=== PATIENT | male | born 1980 | race African-American/Black ===

== ENCOUNTER 2018-08-04 07:57 | Emergency (ER) | payer MEDICAID ==
[~2018-08-04] VITALS: Ht 180.3 cm; Wt 100.0 kg
[2018-08-04 07:58] VITALS: BP 121/74
[2018-08-04] MEDS ORDERED: METF-960 PO (08:05)
[2018-08-04 08:08] LABS: GLUCOSE,POINT OF CARE 183 MG/DL (70-110)
[2018-08-04] MEDS ORDERED: PROPARACAINE HCL 0.5% 15 ML OPHTHALMIC SOLUTION OD ONE (09:00)
[2018-08-04] MEDS ORDERED: FLUORESCEIN SODIUM 1 MG STRIP ONE (09:03)
[2018-08-04] MEDS ORDERED: ERYTHROMYCIN 0.5% 3.5 GM TUBE OPHTHALMIC OINTMENT OD ONE ×2 (09:15→09:30)
[2018-08-04] MEDS ORDERED: IBUPROFEN 800 MG TABLET PO ONE (09:15)
== END 2018-08-04 09:48 | disposition home or self-care (01) ==
LOC: EMS 07:57
DX: H00.013 Hordeolum externum right eye, unspecified eyelid (principal); I10 Essential (primary) hypertension; Z87.891 Personal history of nicotine dependence; Z79.84 Long term (current) use of oral hypoglycemic drugs

== ENCOUNTER 2019-06-17 09:58 | Emergency (ER) | payer MEDICAID ==
[~2019-06-17] VITALS: Ht 180.3 cm; Wt 90.5 kg
[~2019-06-17 09:58] MED LIST: METF-960 PO
[2019-06-17] MEDS ORDERED: METF-960 PO (10:01)
[2019-06-17 10:16] LABS: GLUCOSE,POINT OF CARE 246 MG/DL (70-110)
[2019-06-17] MEDS ORDERED: ONDANSETRON HCL 4 MG/2 ML VIAL IVP ONE (11:15)
[2019-06-17] MEDS ORDERED: KETOROLAC TROMETHAMINE 30 MG/ML VIAL IVP ONE (11:15)
[2019-06-17] MEDS ORDERED: SODIUM CHLORIDE 0.9% 1,000 ML IV ONE (11:15)
[2019-06-17 11:25] LABS: EOSINOPHILS % (AUTO) 1.1 % (1.0-6.0); HEMATOCRIT 49.5 % (41-53); HEMOGLOBIN 16.6 g/dL (13.5-17.5); LYMPHOCYTES # (AUTO) 1.3 K/uL (1.0-4.8); LYMPHOCYTES % (AUTO) 17.8 % (22.0-44.0); MEAN CORPUSCULAR HEMOGLOBIN 31.2 pg (26.0-34.0); MEAN CORPUSCULAR HGB CONC 33.6 G/dL (31.0-37.0); MEAN CORPUSCULAR VOLUME 93 fL (80-100); MONOCYTES # (AUTO) 0.5 K/uL (0.1-1.0); MONOCYTES % (AUTO) 6.2 % (2.0-9.0); NEUTROPHILS # (AUTO) 5.5 K/uL (1.8-7.7); NEUTROPHILS % (AUTO) 73.9 % (40.0-70.0); PLATELET COUNT (AUTO) 267 K/uL (150-450); RED BLOOD CELL COUNT(AUTO) 5.33 MIL/uL (4.50-5.90); RED CELL DISTRIBUTION WIDTH 13.1 % (11.5-14.5)
[2019-06-17 11:45] LABS: ANION GAP 10 mmol/L (8-16); CALCIUM, TOTAL 9.4 mg/dL (8.8-10.5); CARBON DIOXIDE 25 mmol/L (22-29); CHLORIDE 100 mmol/L (98-107); GLOMERULAR FILTR. RATE CALC > 60 mL/min (>60); GLUCOSE,RANDOM 248 mg/dL (70-110); POTASSIUM 3.7 mmol/L (3.5-5.1); SODIUM SERUM 135 mmol/L (136-145); UREA NITROGEN, BLOOD 7 mg/dL (7-18)
[2019-06-17] MEDS ORDERED: HYDROmorphone 2 MG/ML SYRINGE IVP ONE (11:45)
[2019-06-17 11:49] LABS: ALANINE AMINOTRANSFERASE 44 U/L (12-78); ALBUMIN 3.8 g/dL (3.4-5.0); ALKALINE PHOSPHATASE 111 U/L (46-116); ASPARTATE AMINOTRANSFERASE 30 U/L (15-37); LIPASE 293 U/L (73-393); TOTAL PROTEIN, SERUM 7.4 g/dL (6.4-8.2)
[2019-06-17 12:34] LABS: LACTIC ACID 1.4 mmol/L (0.4-2.0)
[2019-06-17 12:43] VITALS: BP 133/80
== END 2019-06-17 13:24 | disposition home or self-care (01) ==
LOC: EMS 09:59
DX: E11.65 Type 2 diabetes mellitus with hyperglycemia (principal); R10.11 Right upper quadrant pain; R11.10 Vomiting, unspecified; I10 Essential (primary) hypertension; F17.210 Nicotine dependence, cigarettes, uncomplicated; Z87.442 Personal history of urinary calculi; Z79.84 Long term (current) use of oral hypoglycemic drugs
CPT/HCPCS: 36415; 74176; 80053; 82962; 83605; 83690; 84484; 85025; 93005; 96361; 96374; 96375; 99285; G0480; J1170; J1885; J2405; J7030

== ENCOUNTER 2019-06-20 08:12 | Emergency (ER) | payer MEDICAID ==
[~2019-06-20] VITALS: Ht 180.3 cm; Wt 104.5 kg
[2019-06-20 08:35] LABS: GLUCOSE,POINT OF CARE 189 MG/DL (70-110)
[2019-06-20 09:41] LABS: BASOPHILS % (AUTO) 0.6 % (0.0-2.0); EOSINOPHILS % (AUTO) 0.6 % (1.0-6.0); HEMATOCRIT 44.7 % (41-53); HEMOGLOBIN 15.4 g/dL (13.5-17.5); LYMPHOCYTES % (AUTO) 12.5 % (22.0-44.0); MEAN CORPUSCULAR HEMOGLOBIN 31.4 pg (26.0-34.0); MEAN CORPUSCULAR HGB CONC 34.4 G/dL (31.0-37.0); MEAN CORPUSCULAR VOLUME 91 fL (80-100); MONOCYTES # (AUTO) 0.7 K/uL (0.1-1.0); MONOCYTES % (AUTO) 8.2 % (2.0-9.0); NEUTROPHILS # (AUTO) 6.4 K/uL (1.8-7.7); NEUTROPHILS % (AUTO) 78.1 % (40.0-70.0); PLATELET COUNT (AUTO) 250 K/uL (150-450); RED CELL DISTRIBUTION WIDTH 12.9 % (11.5-14.5)
[2019-06-20] MEDS ORDERED: KETOROLAC TROMETHAMINE 30 MG/ML VIAL IVP ONE ×2 (10:15→10:30)
[2019-06-20 10:40] LABS: ANION GAP 11 mmol/L (8-16); CALCIUM, TOTAL 8.3 mg/dL (8.8-10.5); CARBON DIOXIDE 28 mmol/L (22-29); CHLORIDE 103 mmol/L (98-107); GLOMERULAR FILTR. RATE CALC > 60 mL/min (>60); GLUCOSE,RANDOM 185 mg/dL (70-110); POTASSIUM 3.6 mmol/L (3.5-5.1); SODIUM SERUM 142 mmol/L (136-145); UREA NITROGEN, BLOOD 7 mg/dL (7-18)
[2019-06-20 10:46] LABS: ALANINE AMINOTRANSFERASE 28 U/L (12-78); ALBUMIN 3.7 g/dL (3.4-5.0); ALKALINE PHOSPHATASE 89 U/L (46-116); ASPARTATE AMINOTRANSFERASE 24 U/L (15-37); BILIRUBIN,TOTAL 1.2 mg/dL (0.1-1.0); TOTAL PROTEIN, SERUM 6.8 g/dL (6.4-8.2)
[2019-06-20 12:37] LABS: GLUCOSE, URINE (UA) NEGATIVE (NEGATIVE); KETONES,URINE >=80 mg/dL (NEGATIVE); LEUKOCYTE ESTERASE ,URINE NEGATIVE (NEGATIVE); NITRATE,URINE NEGATIVE (NEGATIVE); OCCULT BLOOD,URINE NEGATIVE (NEGATIVE); PROTEIN,URINE TRACE (NEGATIVE); UROBILINOGEN,URINE 0.2 mg/dL (<=1.0)
[2019-06-20 12:44] LABS: APPEARANCE,URINE HAZY (CLEAR); BILIRUBIN,URINE PRELIM. POSITIVE (NEGATIVE)
[2019-06-20 12:48] LABS: BACTERIA,URINE None Seen /HPF (None Seen); RBC,URINE 0-2 /HPF (0-2); WBC,URINE 0-2 /HPF (0-5)
[2019-06-20 13:31] VITALS: BP 119/71
== END 2019-06-20 13:33 | disposition home or self-care (01) ==
LOC: EMS 08:14
DX: F12.188 Cannabis abuse with other cannabis-induced disorder (principal); R10.33 Periumbilical pain; R11.2 Nausea with vomiting, unspecified; I10 Essential (primary) hypertension; F17.210 Nicotine dependence, cigarettes, uncomplicated; Z79.84 Long term (current) use of oral hypoglycemic drugs
CPT/HCPCS: 36415; 74018; 76770; 80053; 81001; 82962; 85025; 87491; 87591; 96374; 99284; J1885

== ENCOUNTER 2021-11-20 14:32 | Emergency (ER) | payer MEDICAID, OTHER ==
[~2021-11-20] VITALS: Ht 180.3 cm; Wt 86.3 kg
[~2021-11-20 14:32] MED LIST changes: +METF-1211 PO; -METF-960 PO
[2021-11-20] MEDS ORDERED: CAPSAICIN 0.025% 60 GM CREAM TP ONE (15:30)
[2021-11-20] MEDS ORDERED: ONDANSETRON HCL 4 MG/2 ML VIAL IVP ONE (15:30)
[2021-11-20] MEDS ORDERED: SODIUM CHLORIDE 0.9% 1,000 ML IV ONE (15:30)
[2021-11-20 15:47] LABS: BASOPHILS % (AUTO) 0.7 % (0.0-2.0); HEMATOCRIT 46.3 % (41-53); HEMOGLOBIN 15.7 g/dL (13.5-17.5); LYMPHOCYTES # (AUTO) 1.6 K/uL (1.0-4.8); LYMPHOCYTES % (AUTO) 22.7 % (22.0-44.0); MEAN CORPUSCULAR HEMOGLOBIN 30.9 pg (26.0-34.0); MEAN CORPUSCULAR VOLUME 91 fL (80-100); MONOCYTES # (AUTO) 0.6 K/uL (0.1-1.0); MONOCYTES % (AUTO) 8.3 % (2.0-9.0); NEUTROPHILS # (AUTO) 4.8 K/uL (1.8-7.7); NEUTROPHILS % (AUTO) 67.3 % (40.0-70.0); PLATELET COUNT (AUTO) 270 K/uL (150-450); RED CELL DISTRIBUTION WIDTH 13.4 % (11.5-14.5)
[2021-11-20 15:55] LABS: ANION GAP 12 mmol/L (8-16); CARBON DIOXIDE 29 mmol/L (22-29); CHLORIDE 99 mmol/L (98-107); CREATININE 0.61 mg/dL (0.60-1.30); GLOMERULAR FILTR. RATE CALC > 60 mL/min (>60); GLUCOSE,RANDOM 217 mg/dL (70-110); POTASSIUM 3.8 mmol/L (3.5-5.1); SODIUM SERUM 140 mmol/L (136-145); UREA NITROGEN, BLOOD 7 mg/dL (7-18)
[2021-11-20 16:01] LABS: ALANINE AMINOTRANSFERASE 29 U/L (12-78); ALBUMIN 3.9 g/dL (3.4-5.0); ALKALINE PHOSPHATASE 116 U/L (46-116); ASPARTATE AMINOTRANSFERASE 18 U/L (15-37); LIPASE 296 U/L (73-393); TOTAL PROTEIN, SERUM 7.7 g/dL (6.4-8.2)
[2021-11-20 17:14] LABS: APPEARANCE,URINE CLEAR (CLEAR); BILIRUBIN,URINE NEGATIVE (NEGATIVE); GLUCOSE, URINE (UA) 300-500 mg/dL (NEGATIVE); KETONES,URINE 80-100 mg/dL (NEGATIVE); LEUKOCYTE ESTERASE ,URINE NEGATIVE Leu/uL (NEGATIVE); NITRATE,URINE NEGATIVE (NEGATIVE); OCCULT BLOOD,URINE NEGATIVE (NEGATIVE); PROTEIN,URINE TRACE (NEGATIVE); SPECIFIC GRAVITIY, URINE 1.038 (1.003-1.030)
[2021-11-20 17:17] LABS: AMPHET/METH SCREEN,URINE NEGATIVE (NEGATIVE); BARBITURATE SCREEN, URINE NEGATIVE (NEGATIVE); BENZODIAZEPINES SCREEN,URINE NEGATIVE (NEGATIVE); CANNABINOID SCREEN,URINE POSITIVE (NEGATIVE); COCAINE SCREEN,URINE NEGATIVE (NEGATIVE); METHADONE SCREEN, URINE NEGATIVE (NEGATIVE); OPIATE SCREEN,URINE POSITIVE (NEGATIVE)
[2021-11-20 17:22] LABS: PHENCYCLIDINE SCREEN,URINE NEGATIVE (NEGATIVE)
[2021-11-20 17:52] LABS: BACTERIA,URINE None Seen /HPF (None Seen); RBC,URINE None Seen /HPF (0-2); WBC,URINE 0-2 /HPF (0-5)
[2021-11-20 17:53] LABS: SQUAMOUS EPITHELIAL CELL,UR Few /LPF (None Seen)
[2021-11-20 17:57] VITALS: BP 127/84
== END 2021-11-20 18:28 | disposition home or self-care (01) ==
LOC: EMS 14:34
DX: G89.29 Other chronic pain (principal); R10.84 Generalized abdominal pain; F12.988 Cannabis use, unspecified with other cannabis-induced disorder; R11.10 Vomiting, unspecified; I10 Essential (primary) hypertension; E11.9 Type 2 diabetes mellitus without complications; Z87.891 Personal history of nicotine dependence; Z79.84 Long term (current) use of oral hypoglycemic drugs
CPT/HCPCS: 36415; 80053; 80307; 81001; 83690; 85025; 96361; 96374; 99283; J2405; J7030

== ENCOUNTER 2022-11-12 09:30 | Emergency (ER) | payer OTHER ==
[~2022-11-12] VITALS: Ht 175.3 cm; Wt 75.0 kg
[2022-11-12] MEDS ORDERED: SODIUM CHLORIDE 0.9% 1,000 ML IV ONE (10:00)
[2022-11-12] MEDS ORDERED: ONDANSETRON HCL 4 MG/2 ML VIAL IVP ONE (10:00)
[2022-11-12 10:05] LABS: COVID AG,FIA SOURCE NASAL SWAB
[2022-11-12 10:06] LABS: BASOPHILS % (AUTO) 0.4 % (0.0-2.0); EOSINOPHILS % (AUTO) 0.7 % (1.0-6.0); HEMOGLOBIN 17.1 g/dL (13.5-17.5); LYMPHOCYTES # (AUTO) 1.2 K/uL (1.0-4.8); LYMPHOCYTES % (AUTO) 14.1 % (22.0-44.0); MEAN CORPUSCULAR HEMOGLOBIN 31.4 pg (26.0-34.0); MEAN CORPUSCULAR HGB CONC 33.6 G/dL (31.0-37.0); MEAN CORPUSCULAR VOLUME 93 fL (80-100); MONOCYTES # (AUTO) 0.5 K/uL (0.1-1.0); MONOCYTES % (AUTO) 6.2 % (2.0-9.0); NEUTROPHILS # (AUTO) 6.6 K/uL (1.8-7.7); NEUTROPHILS % (AUTO) 78.6 % (40.0-70.0); PLATELET COUNT (AUTO) 306 K/uL (150-450); RED BLOOD CELL COUNT(AUTO) 5.46 MIL/uL (4.50-5.90); RED CELL DISTRIBUTION WIDTH 13.1 % (11.5-14.5)
[2022-11-12 10:15] LABS: ANION GAP 8 mmol/L (8-16); CALCIUM, TOTAL 9.1 mg/dL (8.8-10.5); CARBON DIOXIDE 28 mmol/L (22-29); CHLORIDE 98 mmol/L (98-107); GLOMERULAR FILTR. RATE CALC > 60 mL/min (>60); GLUCOSE,RANDOM 335 mg/dL (70-110); POTASSIUM 4.2 mmol/L (3.5-5.1); SODIUM SERUM 134 mmol/L (136-145); UREA NITROGEN, BLOOD 8 mg/dL (7-18)
[2022-11-12 10:21] LABS: ALANINE AMINOTRANSFERASE 32 U/L (12-78); ALBUMIN 4.4 g/dL (3.4-5.0); ALKALINE PHOSPHATASE 140 U/L (46-116); ASPARTATE AMINOTRANSFERASE 23 U/L (15-37); LIPASE 235 U/L (73-393); TOTAL PROTEIN, SERUM 7.7 g/dL (6.4-8.2)
[2022-11-12] MEDS ORDERED: PB/HYOSCY/ATR/SCOP/LIDO/MAALOX 55 ML BOTTLE PO ONE (10:45)
[2022-11-12 10:49] LABS: INFLUENZA TYPE A NEGATIVE FOR TYPE A (NEGATIVE); INFLUENZA TYPE B NEGATIVE FOR TYPE B (NEGATIVE)
[2022-11-12 11:10] LABS: APPEARANCE,URINE CLEAR (CLEAR); BILIRUBIN,URINE NEGATIVE (NEGATIVE); GLUCOSE, URINE (UA) >=1000 mg/dL (NEGATIVE); KETONES,URINE 80-100 mg/dL (NEGATIVE); LEUKOCYTE ESTERASE ,URINE NEGATIVE (NEGATIVE); NITRATE,URINE NEGATIVE (NEGATIVE); OCCULT BLOOD,URINE NEGATIVE (NEGATIVE); PH,URINE 5.5 (5.0-8.0); PROTEIN,URINE NEGATIVE (NEGATIVE); SPECIFIC GRAVITIY, URINE 1.035 (1.003-1.030); UROBILINOGEN,URINE <=1.0 mg/dL (<=1.0)
[2022-11-12 11:35] LABS: BACTERIA,URINE Rare /HPF (None Seen); RBC,URINE 0-2 /HPF (0-2); SQUAMOUS EPITHELIAL CELL,UR Rare /LPF (None Seen); WBC,URINE 0-2 /HPF (0-5)
[2022-11-12 12:31] LABS: GLUCOSE,POINT OF CARE 286 MG/DL (70-110)
[2022-11-12] MEDS ORDERED: CAPSAICIN 0.025% 60 GM CREAM TP ONE (12:45)
[2022-11-12 13:36] VITALS: BP 137/82
[2022-11-12] MEDS ORDERED: ONDA-104 PO (13:37)
== END 2022-11-12 14:04 | disposition home or self-care (01) ==
LOC: EMS 09:39
DX: R10.11 Right upper quadrant pain (principal); R11.2 Nausea with vomiting, unspecified; F41.9 Anxiety disorder, unspecified; F10.20 Alcohol dependence, uncomplicated; E11.9 Type 2 diabetes mellitus without complications; I10 Essential (primary) hypertension; Z87.891 Personal history of nicotine dependence; Z98.890 Other specified postprocedural states; Z20.822 Contact with and (suspected) exposure to COVID-19
CPT/HCPCS: 99285; 74176; 96374; 96361; 87426; 80053; 81001; 82962; 83690; 85025; 87804; 36415; J2405; J7030

== ENCOUNTER 2025-06-09 14:47 | Emergency (ER) | payer OTHER ==
[~2025-06-09] VITALS: Ht 180.3 cm; Wt 82.3 kg
[~2025-06-09 14:47] MED LIST changes: +INSLAN SQ; -METF-1211 PO; +PANT-31 PO
[2025-06-09 14:53] VITALS: BP 114/79; PULSE 90; RESP 16; TEMP 97.9; O2SAT 98
[2025-06-09] MEDS: MAG HYDROX/ALUMINUM HYD/SIMETH 30 ML SUSPENSION UDCUP PO ONE (15:21)
[2025-06-09] MEDS: FAMOTIDINE 20 MG/2 ML VIAL IVP ONE (15:21)
[2025-06-09] MEDS ORDERED: ACETAMINOPHEN 500 MG TABLET PO ONE (15:30)
[2025-06-09 16:05] LABS: PLATELET COUNT (AUTO) 302 K/uL (150-450); RED BLOOD CELL COUNT(AUTO) 4.97 MIL/uL (4.50-5.90); RED CELL DISTRIBUTION WIDTH 13.0 % (11.5-14.5); WHITE BLOOD COUNT (AUTO) 7.9 K/uL (4.5-11.0)
[2025-06-09 16:13] LABS: CALCIUM, TOTAL 8.4 mg/dL (8.8-10.5); CREATININE 0.49 mg/dL (0.60-1.30); GLOMERULAR FILTR. RATE CALC > 60 mL/min (>60); GLUCOSE,RANDOM 274 mg/dL (70-110); SODIUM SERUM 134 mmol/L (136-145); UREA NITROGEN, BLOOD 7 mg/dL (7-18)
[2025-06-09 16:20] LABS: ASPARTATE AMINOTRANSFERASE 19.0 U/L (15-37); TOTAL PROTEIN, SERUM 6.7 g/dL (6.4-8.2)
== END 2025-06-09 16:46 | disposition home or self-care (01) ==
LOC: EMS 14:47
DX: R10.9 Unspecified abdominal pain (principal); G89.29 Other chronic pain; E11.9 Type 2 diabetes mellitus without complications; F10.20 Alcohol dependence, uncomplicated; I10 Essential (primary) hypertension; Z87.19 Personal history of other diseases of the digestive system; Z87.442 Personal history of urinary calculi; Z98.890 Other specified postprocedural states; Z90.49 Acquired absence of other specified parts of digestive tract; Z79.4 Long term (current) use of insulin; Z79.899 Other long term (current) drug therapy; Z87.891 Personal history of nicotine dependence
CPT/HCPCS: 99283; 96374; 80048; 80076; 83690; 85025; 36415; J3490

== ENCOUNTER 2025-06-27 09:49 | Emergency (ER) | payer OTHER ==
[~2025-06-27] VITALS: Ht 180.3 cm; Wt 81.8 kg
[2025-06-27 09:54] VITALS: TEMP 98.2
[2025-06-27 10:16] LABS: GLUCOMETER DEV NAME(LOC) ERT.7; GLUCOSE,POINT OF CARE 263 MG/DL (70-110)
[2025-06-27] MEDS: KETOROLAC TROMETHAMINE 30 MG/ML VIAL IVP ONE (10:33)
[2025-06-27] MEDS: ONDANSETRON HCL 4 MG/2 ML VIAL IVP ONE (10:33)
[2025-06-27 10:46] LABS: PLATELET COUNT (AUTO) 323 K/uL (150-450); RED BLOOD CELL COUNT(AUTO) 5.22 MIL/uL (4.50-5.90); RED CELL DISTRIBUTION WIDTH 12.8 % (11.5-14.5); WHITE BLOOD COUNT (AUTO) 8.7 K/uL (4.5-11.0)
[2025-06-27] MEDS: SODIUM CHLORIDE 0.9% 2,450 ML IV ONE (10:50)
[2025-06-27 10:56] LABS: CALCIUM, TOTAL 8.4 mg/dL (8.8-10.5); CREATININE 0.70 mg/dL (0.60-1.30); GLOMERULAR FILTR. RATE CALC > 60 mL/min (>60); GLUCOSE,RANDOM 246 mg/dL (70-110); SODIUM SERUM 135 mmol/L (136-145); UREA NITROGEN, BLOOD 10 mg/dL (7-18)
[2025-06-27 11:00] LABS: ASPARTATE AMINOTRANSFERASE 24.0 U/L (15-37); TOTAL PROTEIN, SERUM 6.8 g/dL (6.4-8.2)
[2025-06-27] MEDS ORDERED: ONDA-104 PO (14:38)
[2025-06-27 15:07] VITALS: BP 140/92; PULSE 79; RESP 18; O2SAT 96
== END 2025-06-27 15:40 | disposition home or self-care (01) ==
LOC: EMS 09:55
DX: R11.16 Cannabis hyperemesis syndrome (principal); R10.31 Right lower quadrant pain; R11.2 Nausea with vomiting, unspecified; E11.9 Type 2 diabetes mellitus without complications; F10.20 Alcohol dependence, uncomplicated; F12.90 Cannabis use, unspecified, uncomplicated; I10 Essential (primary) hypertension; Z87.891 Personal history of nicotine dependence; Z79.4 Long term (current) use of insulin; Z87.442 Personal history of urinary calculi; Z87.19 Personal history of other diseases of the digestive system; Z90.49 Acquired absence of other specified parts of digestive tract; Z79.899 Other long term (current) drug therapy; Z98.890 Other specified postprocedural states
CPT/HCPCS: 99284; 96374; 96375; 96361; 71045; 80048; 80076; 82962; 85025; 36415; J1885; J1200; J1630; J2405; J7030; 99285

== ENCOUNTER 2025-08-08 03:48 | Emergency (ER) | payer OTHER ==
[~2025-08-08] VITALS: Ht 180.3 cm; Wt 63.6 kg
[~2025-08-08 03:48] MED LIST changes: +ONDA-104 PO
[2025-08-08] MEDS: LORazepam 2 MG/ML VIAL IVP ONE (05:00)
[2025-08-08 05:12] LABS: PLATELET COUNT (AUTO) 357 K/uL (150-450); RED BLOOD CELL COUNT(AUTO) 5.26 MIL/uL (4.50-5.90); RED CELL DISTRIBUTION WIDTH 12.9 % (11.5-14.5); WHITE BLOOD COUNT (AUTO) 10.8 K/uL (4.5-11.0)
[2025-08-08 05:33] LABS: CALCIUM, TOTAL 8.5 mg/dL (8.8-10.5); CREATININE 0.77 mg/dL (0.60-1.30); GLOMERULAR FILTR. RATE CALC > 60 mL/min (>60); GLUCOSE,RANDOM 304 mg/dL (70-110); SODIUM SERUM 138 mmol/L (136-145); UREA NITROGEN, BLOOD 11 mg/dL (7-18)
[2025-08-08 05:38] LABS: ASPARTATE AMINOTRANSFERASE 20.0 U/L (15-37); TOTAL PROTEIN, SERUM 7.7 g/dL (6.4-8.2)
[2025-08-08 06:31] VITALS: BP 132/77; PULSE 103; RESP 22; TEMP 98.3; O2SAT 98
== END 2025-08-08 06:30 | disposition home or self-care (01) ==
LOC: EMS 04:00
DX: R11.16 Cannabis hyperemesis syndrome (principal); E11.9 Type 2 diabetes mellitus without complications; F10.20 Alcohol dependence, uncomplicated; I10 Essential (primary) hypertension; K29.70 Gastritis, unspecified, without bleeding; R10.84 Generalized abdominal pain; Z87.19 Personal history of other diseases of the digestive system; Z87.442 Personal history of urinary calculi; Z90.49 Acquired absence of other specified parts of digestive tract; Z98.890 Other specified postprocedural states; Z79.4 Long term (current) use of insulin; Z79.899 Other long term (current) drug therapy; Z87.891 Personal history of nicotine dependence
CPT/HCPCS: 99284; 96374; 96375; 80048; 80076; 83690; 85025; 36415; 93005; J1200; J1630; J2060